=== PATIENT | female | born 1980 ===

== ENCOUNTER 2016-09-15 08:33 | Emergency (ER) | payer MEDICAID ==
[2016-09-15 09:02] VITALS: BP 142/88
[2016-09-15 09:22] LABS: Basophils % (Auto) 0.6 % (0.0-1.8); Eosinophils % (Auto) 2.2 % (0.0-4.3); Hematocrit 36.3 % (30.3-42.9); Hemoglobin 11.9 gm/dl (10.1-14.3); Mean Corpuscular HGB Conc 33 % (30-34); Mean Corpuscular Hemoglobin 29 pg (28-32); Mean Corpuscular Volume 90 fl (79-97); Platelet Count 268 K/mm3 (140-440); Red Blood Count 4.05 M/mm3 (3.65-5.03); Red Cell Distribution Width 13.7 % (13.2-15.2)
[2016-09-15 09:47] LABS: Alanine Aminotransferase 27 units/L (7-56); Albumin 3.1 g/dL (3.9-5); Albumin/Globulin Ratio 0.8 %; Alkaline Phosphatase 38 units/L (35-129); Anion Gap 15 mmol/L; Bilirubin,Total 0.2 mg/dL (0.1-1.2); Blood Urea Nitrogen 5 mg/dL (7-17); Calcium 8.7 mg/dL (8.4-10.2); Carbon Dioxide 25 mmol/L (22-30); Chloride 100.9 mmol/L (98-107); Glucose 107 mg/dL (65-100); Lipase 26 units/L (13-60); Potassium 3.4 mmol/L (3.6-5.0); Sodium 137 mmol/L (137-145); Total Protein 6.8 g/dL (6.3-8.2)
[2016-09-15 11:32] LABS: Bacteria,Urine 1+ /HPF (Negative); Bilirubin,Urine NEG (Negative); Blood,Urine NEG (Negative); Ketones,Urine TR mg/dL (Negative); Leukocyte Esterase,Urine NEG (Negative); Mucus,Urine 1+ /HPF; Nitrite,Urine NEG (Negative); Protein,Urine <15 mg/dL mg/dL (Negative); Urobilinogen,Urine < 2.0 mg/dL (<2.0)
--- NOTE | 2016-09-15 12:00 | Emergency Department Report ---
Chief Complaint: Abdominal Pain Stated Complaint: LT SIDE ABD PAIN Time Seen by Provider: 09/15/16 11:54 - HPI History of Present Illness: Patient reports lower abdominal cramping and left side pain that started yesterday. No vaginal bleeding or discharge Patient's Supply Aide is Dr. Henao. LMP 05/19/16. G5, A1, P3 - ROS Review of Systems: all other systems are unremarkable except for documentation in HPI - Exam Vital Signs: Vital Signs 09/15/16 08:58 Temperature 98.1 F Pulse Rate 79 Respiratory 18 Rate Blood Pressure 142/88 O2 Sat by Pulse 98 Oximetry Physical Exam: Gen: well developed and nourished, NAD Abd: bowel sounds present, non-distended, soft tenderness to palpation RLQ and LUQ, no rebound, guarding or rigid Back: full ROM, no CVA tenderness, no rash, muscle spasms, paraspinal or vertebrae tenderness MSE screening note: Focused history and physical exam performed. Due to findings the following was ordered: laboratory studies ordered ED Medical Decision Making - Lab Data Result diagrams: 09/15/16 09:15 09/15/16 09:15 ED Disposition for MSE Condition: Stable Instructions: Abdominal Pain (ED)
[2016-09-15] MEDS ORDERED: TYLENOL PO ONE (12:47)
--- NOTE | 2016-09-16 20:07 | ED Elopement Review ---
ED Pt Elopement review - Results review Lab results: Laboratory Tests 09/15/16 09/15/16 09/15/16 09:15 09:15 Unknown WBC 10.0 RBC 4.05 Hgb 11.9 Hct 36.3 MCV 90 MCH 29 MCHC 33 RDW 13.7 Plt Count 268 Lymph % (Auto) 31.3 [place] % (Auto) 7.1 Eos % (Auto) 2.2 Baso % (Auto) 0.6 Lymph # 3.1 [place] # 0.7 Eos # 0.2 Baso # 0.1 Seg Neutrophils % 58.8 Seg Neutrophils # 5.9 Sodium 137 Potassium 3.4 L Chloride 100.9 Carbon Dioxide 25 Anion Gap 15 BUN 5 L Creatinine 0.4 L Estimated GFR > 60 BUN/Creatinine Ratio 12.50 Glucose 107 H Calcium 8.7 Total Bilirubin 0.2 AST 27 ALT 27 Alkaline Phosphatase 38 Total Protein 6.8 Albumin 3.1 L Albumin/Globulin Ratio 0.8 Lipase 26 Urine Color Yellow Urine Turbidity Cloudy Urine pH 7.0 Ur Specific [place] 1.016 Urine Protein <15 mg/dl Urine Glucose (UA) Neg Urine Ketones Tr Urine Blood Neg Urine Nitrite Neg Urine Bilirubin Neg Urine Urobilinogen < 2.0 Ur Leukocyte Esterase Neg Urine WBC (Auto) 2.0 Urine RBC (Auto) 2.0 U Epithel Cells (Auto) 22.0 H Urine Bacteria (Auto) 1+ Urine Mucus 1+ - Call Back decision Pt Call Back Decision: No action required
== END 2016-09-15 14:33 | disposition left against medical advice (07) ==
LOC: ED 08:33
DX: R10.30 Lower abdominal pain, unspecified (principal); Z53.21 Procedure and treatment not carried out due to patient leaving prior to being seen by health care provider
CPT/HCPCS: 36415; 80053; 81001; 83690; 85025

== ENCOUNTER 2016-11-14 21:46 | Emergency (ER) | payer MEDICAID ==
[2016-11-14 23:07] VITALS: BP 135/80
[2016-11-14] MEDS ORDERED: SODIUM CHLORIDE FLUSH SYRINGE 10 ML IV PRN (23:07)
--- NOTE | 2016-11-17 18:29 | ED Elopement Review ---
ED Pt Elopement review - Call Back decision Pt Call Back Decision: No action required
== END 2016-11-15 01:15 | disposition left against medical advice (07) ==
LOC: TRG 21:46 → ED 21:46 → TRG 21:47 → EDSTATUS 22:46 → ED 11-15 01:15
DX: R07.9 Chest pain, unspecified (principal); R10.30 Lower abdominal pain, unspecified; Z53.21 Procedure and treatment not carried out due to patient leaving prior to being seen by health care provider
CPT/HCPCS: 93005; 93010

== ENCOUNTER 2017-01-24 21:13 | Outpatient (CLI) | payer MEDICAID ==
[2017-01-24 21:37] VITALS: BP 115/79
== END 2017-01-24 22:15 | disposition home or self-care (01) ==
LOC: TRG 21:13
PROVIDERS: ATTEND Obstetrics & Gynecology
DX: O09.523 Supervision of elderly multigravida, third trimester (principal); O47.03 False labor before 37 completed weeks of gestation, third trimester; Z3A.35 35 weeks gestation of pregnancy
CPT/HCPCS: 59025

== ENCOUNTER 2017-02-22 21:05 | Outpatient (CLI) | payer MEDICAID ==
[2017-02-22 21:19] VITALS: BP 126/75
--- NOTE | 2017-02-23 09:57 | Ultrasound Report ---
BIOPHYSICAL PROFILE: 2 - breathing movements 2 - movements 2 posture and tone 2 - Qualitative amniotic fluid volume 8 - TOTAL SCORE OF POSSIBLE 8 Heart Rate (bpm) 137
== END 2017-02-22 22:20 | disposition home or self-care (01) ==
LOC: TRG 21:05
PROVIDERS: ATTEND Obstetrics & Gynecology
DX: O09.523 Supervision of elderly multigravida, third trimester (principal); O47.03 False labor before 37 completed weeks of gestation, third trimester; Z3A.39 39 weeks gestation of pregnancy
CPT/HCPCS: 59025; 76819

== ENCOUNTER 2017-02-27 11:39 | Inpatient (IN) | payer MEDICAID ==
[2017-02-27] MEDS ORDERED: SUBLIMAZE IV PRN (12:00)
[2017-02-27] MEDS ORDERED: POLYCILLIN/NS 2 GM/100 ML 2 GM/100 ML BAG IV ONE (12:00)
[2017-02-27] MEDS ORDERED: PHENERGAN PO PRN ×2 (12:00→17:10)
[2017-02-27] MEDS ORDERED: ZOFRAN IV PRN ×2 (12:00→17:10)
[2017-02-27] MEDS ORDERED: ePHEDrine SULFATE IV PRN ×2 (12:00→15:27)
[2017-02-27] MEDS ORDERED: PITOCin/NS 30 UNIT/500ML 30 UNITS/500 ML BAG IV SCH ×2 (12:00)
[2017-02-27] MEDS ORDERED: MINERAL OIL PO PRN (12:00)
[2017-02-27] MEDS ORDERED: XYLOCAINE 2% INFILTRATI ONE (12:00)
[2017-02-27] MEDS ORDERED: NARCAN 0.4 MG/1 ML IV PRN (12:00)
[2017-02-27] MEDS ORDERED: PITOCin/NS 20 UNIT/1000ML DRIP 20 UNITS/1,000 ML BAG IV SCH (12:00)
[2017-02-27] MEDS ORDERED: BRETHINE IVP PRN (12:30)
[2017-02-27] MEDS ORDERED: BRETHINE SUB-Q PRN (12:30)
[2017-02-27] MEDS: LACTATED RINGERS 1,000 ML IV SCH ×2 (13:10→14:23)
[2017-02-27 13:30] LABS: Hematocrit 34.7 % (30.3-42.9); Hemoglobin 11.4 gm/dl (10.1-14.3); Mean Corpuscular HGB Conc 33 % (30-34); Mean Corpuscular Hemoglobin 28 pg (28-32); Mean Corpuscular Volume 86 fl (79-97); Platelet Count 268 K/mm3 (140-440); Red Blood Count 4.06 M/mm3 (3.65-5.03); Red Cell Distribution Width 14.9 % (13.2-15.2); White Blood Count 8.5 K/mm3 (4.5-11.0)
--- NOTE | 2017-02-27 14:17 | History and Physical Report ---
History of Present Illness Date of examination: 02/27/17 Date of admission: 02/27/17 11:39 Chief complaint: Decreased movement for 2 days. sylvester was ssesn in triage for contractons and decreased movement. She was noted to be 2-3 cm. On today visit. decreased movement. o vb no mark anthony. NST non rective in office. Cerivx was 5cm History of present illness: see above Past History Past Medical History: no pertinent history (morbid obesity ), other Past Surgical History: no surgical history Family/Genetic History: diabetes, hypertension Social history: . denies: smoking, alcohol abuse, prescription drug abuse - Obstetrical History Expected Date of Delivery: 02/28/17 Actual Gestation: 39 Week(s) 6 Day(s) : 6 Para: 3 Hx # Term Pregnancies: 3 Number of Pregnancies: 0 Spontaneous Abortions: 0 Induced : 2 Number of Living Children: 3 Medications and Allergies Allergies Allergy/AdvReac Type Severity Reaction Status Date / Time No Known Allergies Allergy Verified 01/24/17 21:39 Home Medications Medication Instructions Recorded Confirmed Last Taken Type Ondansetron [Zofran TAB] 09/15/16 09/14/16 History Tablet 09/15/16 09/15/16 History Active Meds: Active Medications Ephedrine Sulfate (Ephedrine Sulfate) 10 mg IV Q2M PRN PRN Reason: Hypotension Stop: 02/28/17 11:59 Fentanyl (Sublimaze) 100 mcg IV Q2H PRN PRN Reason: Labor Pain Last Admin: 02/27/17 13:58 Dose: 100 mcg Ampicillin Sodium (Polycillin/Ns 1 Gm/50 Ml) 1 gm in 50 mls @ 100 mls/hr IV Q4H DEMETRI PRN Reason: Protocol Lactated Ringer's (Lactated Ringers) 1,000 mls @ 125 mls/hr IV DIRECT DEMETRI Last Admin: 02/27/17 13:10 Dose: 125 mls/hr Oxytocin/Sodium Chloride (Pitocin/Ns 20 Unit/1000ml Drip) 20 units in 1,000 mls @ 125 mls/hr IV DIRECT DEMETRI Oxytocin/Sodium Chloride (Pitocin/Ns 30 Unit/500ml) 30 units in 500 mls @ 1 mls /hr IV TITR DEMETRI; 1 MILLIUNITS/MIN PRN Reason: Protocol Oxytocin/Sodium Chloride (Pitocin/Ns 30 Unit/500ml) 30 units in 500 mls @ 0 mls /hr IV TITR DEMETRI; As Directed PRN Reason: Protocol Last Admin: 02/27/17 13:13 Dose: 4 ml/hr, 4 mls/hr Mineral Oil (Mineral Oil) 30 ml PO QHS PRN PRN Reason: Constipation Naloxone HCl (Narcan 0.4 Mg/1 Ml) 0.1 mg IV Q2MIN PRN PRN Reason: Res Rate </= 8 or 02 SAT < 92% Ondansetron HCl (Zofran) 4 mg IV Q8H PRN PRN Reason: Nausea And Vomiting Promethazine HCl (Phenergan) 25 mg PO Q6H PRN PRN Reason: Nausea And Vomiting Review of Systems Genitourinary: contractions - Vital Signs Vital signs: Vital Signs Pulse BP Pulse Ox 90 137/81 96 02/27/17 11:59 02/27/17 11:59 02/27/17 11:59 Temp Pulse Resp BP Pulse Ox 92 H 18 143/83 94 02/27/17 14:04 02/27/17 13:58 02/27/17 13:56 02/27/17 14:04 - Physical Exam Breasts: Positive: normal Cardiovascular: Regular rate, Normal S1 Lungs: Positive: Clear to auscultation, Normal air movement Abdomen: Positive: normal appearance, soft, normal bowel sounds. Negative: distention, tenderness Genitourinary (Female): Positive: normal external genitalia, normal perenium Vulva: both: normal Vagina: Positive: normal moisture Uterus: Positive: enlarged, normal contour Anus/Rectum: Positive: normal perianal skin Extremities: Positive: normal Deep Tendon Reflex Grade: Normal +2 - Obstetrical FHR: category 1 Uterine Contraction Monitor Mode: External Cervical Dilatation: 5 Cervical Effacement Percentage: 70 station: -2 Uterine Contraction Pattern: Regular Uterine Tone Measurement Phase: Contraction Uterine Contraction Intensity: Mild Results Result Diagrams: 02/27/17 12:40 All other labs normal. Assessment and Plan A/P IUP 39+6 weeks , Advanced cervical exam Decreased movement IOL with pitcoin Arom ( s/P clear ) epect vaginal delivry GBS + amp given
[2017-02-27] MEDS ORDERED: NARCAN 2 MG/2 ML IV PRN (15:27)
--- NOTE | 2017-02-27 15:27 | Anesthesia Consultation ---
Anesthesia Consult and Med Hx Date of service: 02/27/17 - Airway Anesthetic Teeth Evaluation: Good ROM Head & Neck: Adequate Mental/Hyoid Distance: Adequate Mallampati Class: Class II Intubation Access Assessment: Probably Good - Pre-Operative Health Status ASA Pre-Surgery Classification: ASA3 Proposed Anesthetic Plan: Epidural, Spinal - Pulmonary Hx Asthma: No - Cardiovascular System Hx Hypertension: No - Central Nervous System Hx Seizures: No Hx Psychiatric Problems: No - Endocrine Hx Renal Disease: No Hx Hypothyroidism: No Hx Hyperthyroidism: No - Hematic Hx Anemia: No Hx Sickle Cell Disease: No - Other Systems Hx Alcohol Use: No Hx Obesity: Yes (Morbid obesity BMI 44.8)
[2017-02-27] MEDS ORDERED: POLYCILLIN/NS 1 GM/50 ML 1 GM/50 ML BAG IV SCH (16:00)
[2017-02-27] MEDS ORDERED: fentaNYL-BUPIV 2 MCG/ML-0.125% 200 MCG/100 ML BAG EPIDURAL SCH (16:00)
[2017-02-27] MEDS ORDERED: PHENERGAN PR PRN (17:10)
[2017-02-27] MEDS ORDERED: LANSINOH TP PRN (17:10)
[2017-02-27] MEDS ORDERED: TUCKS PAD TP PRN (17:10)
[2017-02-27] MEDS ORDERED: MILK OF MAGNESIA PO PRN (17:10)
[2017-02-27] MEDS ORDERED: BENADRYL PO PRN (17:10)
[2017-02-27] MEDS ORDERED: DULCOLAX PR PRN (17:10)
[2017-02-27] MEDS ORDERED: TYLENOL PO PRN (17:10)
--- NOTE | 2017-02-27 17:16 | Procedure Note ---
OB Delivery Note - Delivery Date of Delivery: 02/27/17 Surgeon: SARAH GUZMAN Estimated blood loss: other (250cc) - Vaginal Delivery presentation: vertex Delivery position: OA Intrapartum events: none Delivery induction: oxytocin Delivery monitor: external FHT, external uterine Route of delivery: Delivery placenta: spontaneous Delivery cord: 3 umbilical vessels Episiotomy: none Delivery laceration: none Delivery comments: Patient was noted to be c/c/e and commenced to pushing a viable male Apgars 8/8. weight 8 pound 8 ounces at 1656 . The cord was clamped and cut and handed to patient after nares and oropharynx suction A time of 1 min prior to cutting and clamping cord was allowed. The placenta delivered intact with 3 vessels at 1659. No lacs noted. EBL 250cc. Patient tolerated procedure well. - A at 1 minute: 8 at 5 minutes: 8 Infant Gender: Male
[2017-02-27] MEDS ORDERED: SODIUM CHLORIDE FLUSH SYRINGE 10 ML IV NR (18:00)
[2017-02-27] MEDS: MOTRIN PO SCH ×2 (18:31→23:24)
[2017-02-27] MEDS ORDERED: APRESOLINE IV ONE (19:04)
[2017-02-27 19:24] LABS: Bilirubin,Urine NEG (Negative); Blood,Urine MOD (Negative); Ketones,Urine 20 mg/dL (Negative); Leukocyte Esterase,Urine NEG (Negative); Nitrite,Urine NEG (Negative); Protein,Urine <15 mg/dL mg/dL (Negative); Urobilinogen,Urine < 2.0 mg/dL (<2.0)
[2017-02-27 20:10] LABS: Alanine Aminotransferase 28 units/L (7-56); Lactate Dehydrogenase 192 units/L (91-180); Uric Acid 4.5 mg/dL (3.5-7.6)
[2017-02-27] MEDS: PERCOCET 5/325 PO PRN (22:07)
[2017-02-28] MEDS: PERCOCET 5/325 PO PRN ×4 (04:36→23:33)
[2017-02-28] MEDS: MOTRIN PO SCH ×3 (05:54→19:07)
[2017-02-28 06:36] LABS: Hematocrit 32.8 % (30.3-42.9); Hemoglobin 10.4 gm/dl (10.1-14.3)
--- NOTE | 2017-02-28 08:26 | Progress Note ---
Assessment and Plan O: VSS AF BP 130-140/75-83 Max 159/83 PP H/H: 10.4/32.8 A: Stable PP Day 1 Anemia Afterbirth Pains Labile BP's P: Iron QD Monitor BP's Antihypertensive if elevated Subjective - Subjective Date of service: 02/28/17 Patient reports: appetite normal, voiding normally, pain well controlled, ambulating normally, other (c/o afterbirth pains, Percocet resolves. Denies NARAYAN, blurred vision or RUQ pain) [place]: doing well, bottle feeding Objective - Vital Signs Latest vital signs: Vital Signs Temp Pulse Pulse Resp BP BP Pulse Ox 02/28/17 04:30 98 F 93 H 18 135/77 02/28/17 00:10 97.8 F 96 H 18 143/82 02/27/17 21:10 98.6 F 108 H 18 159/83 02/27/17 20:29 109 H 140/75 02/27/17 20:14 117 H 138/80 02/27/17 20:06 104 H 152/78 02/27/17 20:02 112 H 98 02/27/17 19:59 100 H 175/102 02/27/17 19:57 99 H 97 02/27/17 19:52 107 H 96 02/27/17 19:49 99 H 161/93 02/27/17 19:47 99 H 96 02/27/17 19:44 92 H 161/93 02/27/17 19:42 101 H 96 02/27/17 19:34 99 H 97 02/27/17 19:29 100 H 166/92 96 02/27/17 19:27 97 H 92 02/27/17 19:24 101 H 98 02/27/17 19:19 98 H 98 02/27/17 19:14 95 H 166/87 97 02/27/17 19:09 97 H 99 02/27/17 19:04 105 H 97 02/27/17 19:00 98.1 F 20 02/27/17 18:59 99 H 171/104 99 02/27/17 18:56 99 H 174/94 02/27/17 18:55 104 H 168/109 02/27/17 18:45 100 H 169/87 02/27/17 18:30 105 H 148/91 07/05/17 18:15 105 H 132/86 07/05/17 18:00 105 H 153/83 07/05/17 17:52 100 H 98 07/05/17 17:47 105 H 99 07/05/17 17:46 102 H 159/101 07/05/17 17:40 97.8 F 106 H 20 98 07/05/17 17:30 104 H 18 147/80 07/05/17 17:00 96 H 163/83 07/05/17 16:52 96 H 99 07/05/17 16:47 84 97 07/05/17 16:46 96 H 138/71 07/05/17 16:42 92 H 97 07/05/17 16:37 88 97 07/05/17 16:32 79 98 07/05/17 16:30 92 H 137/75 07/05/17 16:27 80 98 07/05/17 16:22 87 98 07/05/17 16:17 91 H 99 07/05/17 16:16 96 H 130/60 07/05/17 16:12 86 99 07/05/17 16:07 85 96 07/05/17 16:02 86 98 07/05/17 15:58 86 148/78 07/05/17 15:57 83 97 07/05/17 15:56 84 144/76 07/05/17 15:54 85 137/77 07/05/17 15:52 73 142/79 98 07/05/17 15:51 83 142/80 07/05/17 15:49 85 123/67 07/05/17 15:47 87 135/78 98 07/05/17 15:45 88 143/91 07/05/17 15:42 97 H 130/65 98 07/05/17 15:40 75 134/68 07/05/17 15:38 85 128/64 07/05/17 15:37 85 119/65 99 07/05/17 15:35 89 126/60 07/05/17 15:32 87 140/73 97 07/05/17 15:30 90 139/71 07/05/17 15:28 93 H 141/71 07/05/17 15:27 92 H 96 07/05/17 15:26 86 136/68 07/05/17 15:24 90 135/72 07/05/17 15:22 99 H 139/68 97 02/27/17 15:20 82 139/66 02/27/17 15:18 87 151/75 02/27/17 15:17 90 96 02/27/17 15:16 90 149/75 02/27/17 15:14 92 H 143/75 02/27/17 15:13 86 144/71 02/27/17 15:12 88 97 02/27/17 15:11 62 75 L 02/27/17 15:08 84 129/88 02/27/17 15:06 81 121/77 02/27/17 15:05 94 H 96 02/27/17 15:04 85 148/82 02/27/17 15:02 88 142/76 02/27/17 15:00 89 143/78 97 02/27/17 14:55 90 135/81 97 02/27/17 14:25 97 H 146/81 02/27/17 14:14 86 95 02/27/17 14:10 93 H 94 02/27/17 14:09 94 H 96 02/27/17 14:04 92 H 94 02/27/17 13:59 92 H 98 02/27/17 13:58 18 02/27/17 13:56 93 H 143/83 02/27/17 13:54 90 97 02/27/17 13:49 88 99 02/27/17 13:44 95 H 97 02/27/17 13:39 88 96 02/27/17 13:34 81 97 02/27/17 13:29 81 98 02/27/17 13:24 101 H 98 02/27/17 13:19 94 H 98 02/27/17 13:14 89 97 05 13:09 90 97 02/27/17 13:04 89 97 02/27/17 12:59 92 H 97 02/27/17 12:54 97 H 97 02/27/17 12:49 89 97 05 12:44 90 97 05 12:39 89 97 02/27/17 12:34 87 97 02/27/17 12:29 90 96 05 12:24 100 H 97 02/27/17 12:19 86 96 05 12:14 90 98 02/27/17 12:09 84 97 02/27/17 12:04 95 H 97 02/27/17 11:59 90 137/81 96 Intake and Output 02/27/17 02/28/17 02/28/17 22:59 06:59 14:59 Intake Total 125 890 Output Total 2000 400 Balance -1875 490 Intake: IV 125 PITOCin/NS 20 UNIT/1000ML 125 DRIP 20 units In 1,000 ml @ 125 mls/hr IV DIRECT DEMETRI Rx#:[id number] Intake, Free Water 890 Output: Urine 2000 400 Indwelling Catheter 1400 Void 600 400 Other: Total, Output Amount 600 250 # Voids Void 1 Estimated Blood Loss 250 - Exam Breasts: Present: deferred Abdomen: Present: normal appearance, soft. Absent: distention, tenderness Uterus: Present: normal, firm, fundal height below umbilicus. Absent: bogginess , tenderness Extremities: Present: normal. Absent: edema - Labs Labs: Abnormal lab results 02/27/17 Range/Units 19:34 Creatinine 0.4 L (0.7-1.2) mg/dL AST 42 H (5-40) units/L Lactate Dehydrogenase 192 H (91-180) units/L
--- NOTE | 2017-02-28 08:29 | Discharge Summary ---
Providers - Providers Date of Admission: 02/27/17 11:39 Date of discharge: 03/01/17 Attending physician: SARAH GUZMAN MD Primary care physician: ALICIA HARTMAN Hospitalization Reason for admission: active labor, IUP at term Delivery: Episiotomy: none Laceration: none Other procedures: none Discharge diagnosis: IUP at term delivered baby: male Condition at discharge: Good Disposition: DC-01 TO HOME OR SELFCARE Plan - Discharge Medications Prescriptions: HYDROcodone/APAP 5-325 [[place] 5/325] 1 each PO Q4HR PRN #30 tablet PRN Reason: Pain Ibuprofen [Motrin 600 MG tab] 600 mg PO Q6H PRN #40 tablet PRN Reason: Pain - Provider Discharge Summary Activity: routine, no sex for 6 weeks, no heavy lifting 4 weeks, no strenuous exercise Diet: routine Instructions: routine Additional instructions: [] Smoking cessation referral if applicable(refer to patient education folder for contact #) [] Refer to [facility]'s [facility] Booklet Call your doctor immediately for: * Fever > 100.5 * Heavy vaginal bleeding ( >1 pad per hour) * Severe persistent headache * Shortness of breath * Reddened, hot, painful area to leg or breast * Drainage or odor from incision. * Keep incision clean and dry at all times and follow doctor's instructions regarding bathing/showering - Follow up plan Follow up: ALICIA HARTMAN MD [Primary Care Provider] - SARAH GUZMAN MD [Staff Physician] - (RTO 4 weeks )
--- NOTE | 2017-02-28 09:56 | Progress Note ---
Subjective Date of service: 02/28/17 Interval history: 1st day after Patient is in the bed, comfortable. Pain is well controlled with pain meds. Ambulated well, no residual neurological deficit. No anesthesia complications Objective - Constitutional Vitals: Vital Signs - 12hr 02/28/17 02/28/17 02/28/17 00:10 04:30 08:50 Temperature 97.8 F 98 F 97.9 F Pulse Rate [ 96 H 93 H 81 Left] Respiratory 18 18 20 Rate Blood Pressure 143/82 135/77 140/87 [Left Arm] - Labs CBC & Chem 7: 02/28/17 06:01 02/27/17 19:34 Labs: Abnormal lab results 02/27/17 Range/Units 19:34 Creatinine 0.4 L (0.7-1.2) mg/dL AST 42 H (5-40) units/L Lactate Dehydrogenase 192 H (91-180) units/L
[2017-02-28] MEDS ORDERED: FEOSOL PO SCH (10:00)
[2017-03-01] MEDS: MOTRIN PO SCH ×2 (00:07→06:10)
[2017-03-01 08:28] VITALS: BP 150/90
== END 2017-03-01 11:30 | disposition home or self-care (01) | DRG 775 ==
LOC: LD 11:39 → OB 20:58
PROVIDERS: ADMIT Obstetrics & Gynecology; ATTEND Obstetrics & Gynecology
PROC: 10E0XZZ Delivery of Products of Conception, External Approach (ICD-10-PCS; principal; 2017-02-27)
PROC: 3E033VJ Introduction of Other Hormone into Peripheral Vein, Percutaneous Approach (ICD-10-PCS; 2017-02-27)
DX: O99.214 Obesity complicating childbirth (principal); E66.01 Morbid (severe) obesity due to excess calories; O99.03 Anemia complicating the puerperium; D64.9 Anemia, unspecified; Z68.41 Body mass index [BMI] 40.0-44.9, adult; Z3A.39 39 weeks gestation of pregnancy; Z37.0 Single live birth; O99.824 Streptococcus B carrier state complicating childbirth
CPT/HCPCS: 36415; 81001; 82565; 83615; 84450; 84460; 84550; 85014; 85018; 85027; 86850; 86900; 86901; 99211; G0463; J0290; J0360; J2405; J2590; J3010; J7120